=== PATIENT | female | born 1990 | race Caucasian/White ===

== ENCOUNTER 2019-03-24 13:29 | Emergency (ER) | payer OTHER ==
[~2019-03-24] VITALS: Ht 157.5 cm; Wt 88.0 kg
[2019-03-24 13:55] VITALS: Ht 157.5 cm; Wt 88.0 kg
[2019-03-24 15:15] VITALS: BP 121/89
== END 2019-03-24 15:15 | disposition home or self-care (01) ==
LOC: ED 13:29
DX: S39.012A Strain of muscle, fascia and tendon of lower back, initial encounter (principal); X58.XXXA Exposure to other specified factors, initial encounter; Y93.89 Activity, other specified; Y92.89 Other specified places as the place of occurrence of the external cause; Y99.8 Other external cause status
CPT/HCPCS: J1885